=== PATIENT | male | born 1980 | race Hispanic/Latino ===

== ENCOUNTER 2025-05-25 11:49 | Emergency (ER) | payer SELFPAY ==
[2025-05-25 12:04] VITALS: BP 148/98; PULSE 80; RESP 18; TEMP 36.6; O2SAT 98
[2025-05-25 12:27] LABS: Hematocrit 50.5 % (42.0-52.0); Hemoglobin 17.0 g/dL (14.0-18.0); Immature Granulocyte Percent A 0.3 % (0-0.5); Lymphocytes Absolute Auto 2.25 K/mm3 (0.9-3.2); Mean Corpuscular HGB Conc 33.7 g/dl (32-36); Mean Corpuscular Hemoglobin 30.4 pg (26-34); Mean Corpuscular Volume 90.2 fl (80-100); Nucleated Red Blood Cells Absolute Auto 0.000 K/mm3 (0.0-0.012); Nucleated Red Blood Cells Perc 0.0 % (0.0-0.2); Platelet Count Result 265 k/mm3 (150-375); Red Blood Count 5.60 M/mm3 (4.6-6.20); White Blood Count 7.3 K/mm3 (4.5-10.0)
[2025-05-25 12:34] LABS: Add Urine Microscopic? YES; Appearance Urine Clear (Clear); Glucose Urine UA Negative (Negative); Leukocyte Esterase Ur Negative LEU/UL (Negative); Nitrate Urine Negative (Negative); Non Pathogenic Casts 0-2; Specific Grav Ur 1.031 (1.001-1.035)
--- NOTE | 2025-05-25 12:37 | ED.GENADULT ---
HPI - General Adult General Chief complaint: Nausea/Vomiting/Diarrhea Stated complaint: n/v Time Seen by Provider: 05/25/25 12:02 History of Present Illness HPI narrative: This is a 44-year-old Macanese-speaking male presenting for 2 complaints. Patient says that several years ago he was told that he may have hypertension and high cholesterol. He has not seen a primary care physician and he is not on medication. He wants know if he has hypertension high cholesterol. The 2nd complaint which frankly the patient does not seem very concerned about is nausea. Patient states for the last 3 weeks he has had intermittent nausea without vomiting. No other symptoms including fevers, abdominal pain diarrhea urinary symptoms. And does say that he occasionally has sharp chest pain in the center of his chest that is very mild and last for 1-2 seconds at a time. No difficulty breathing. Related Data Allergies Allergy/AdvReac Type Severity Reaction Status Date / Time No Known Allergies Allergy Verified 05/25/25 12:11 Exam Narrative: APPEARANCE: No apparent distress. Head: atraumatic. EYES: EOMI, NOSE: Atraumatic NECK: Trachea midline RESPIRATORY: No increased rate of breathing clear to auscultation CARDIOVASCULAR: RRR, no peripheral edema ABDOMINAL: Non-distended soft nontender no guarding rebound MUSCULOSKELETAl: No obvious deformities NEURO: Alert. Moving 4/4 extremities SKIN:: Warm, dry. Normal color PSYCHIATRIC: Normal affect Course Vital Signs Vital signs: Vital Signs Temperature 97.8 F 05/25/25 12:04 Pulse Rate 80 05/25/25 12:04 Respiratory Rate 18 05/25/25 12:04 Blood Pressure 148/98 H 05/25/25 12:04 Pulse Oximetry 98 05/25/25 12:04 Oxygen Delivery Room Air 05/25/25 12:04 Temperature 97.8 F 05/25/25 12:04 Pulse Rate 80 05/25/25 12:04 Respiratory Rate 18 05/25/25 12:04 Blood Pressure 148/98 H 05/25/25 12:04 Pulse Oximetry 98 05/25/25 12:04 Oxygen Delivery Room Air 05/25/25 12:04 Medical Decision Making [facility] Narrative Medical decision making narrative: -Course: 44-year-old male presenting with 2 complaints. He is concerned that he may have hypertension or high cholesterol. He will be referred to a primary care physician who can address those complaints. His 2nd complaint is nausea. Symptoms are mild he has not vomited. He will be provided a prescription for Zofran. -DDX includes but is not limited to: Hypertension, gastritis, GERD, viral syndrome Independent interpretation of studies: Screening lab work ordered per nursing protocol. Vital Signs Vital Signs: Vital Signs Temperature 97.8 F 05/25/25 12:04 Pulse Rate 80 05/25/25 12:04 Respiratory Rate 18 05/25/25 12:04 Blood Pressure 148/98 H 05/25/25 12:04 Pulse Oximetry 98 05/25/25 12:04 Oxygen Delivery Room Air 05/25/25 12:04 Temperature 97.8 F 05/25/25 12:04 Pulse Rate 80 05/25/25 12:04 Respiratory Rate 18 05/25/25 12:04 Blood Pressure 148/98 H 05/25/25 12:04 Pulse Oximetry 98 05/25/25 12:04 Oxygen Delivery Room Air 05/25/25 12:04 Lab Data 05/25/25 12:17 05/25/25 12:17 Labs: Lab Results 05/25/25 Range/Units 12:17 WBC 7.3 (4.5-10.0) K/mm3 RBC 5.60 (4.6-6.20) M/mm3 Hgb 17.0 (14.0-18.0) g/dL Hct 50.5 (42.0-52.0) % MCV 90.2 (80-100) fl MCH 30.4 (26-34) pg MCHC 33.7 (32-36) g/dl RDW 12.7 (11.5-14.5) % Plt Count 265 (150-375) k/mm3 MPV 10.3 (7.4-10.4) fl Immature Gran % (Auto) 0.3 (0-0.5) % Neut % (Auto) 60.7 (45.5-73.1) % Lymph % (Auto) 31.0 (18.3-44.2) % [place] % (Auto) 7.3 (2.6-8.5) % Eos % (Auto) 0.1 (0-4.4) % Baso % (Auto) 0.6 (0.2-1.2) % Lymph # (Auto) 2.25 (0.9-3.2) K/mm3 [place] # (Auto) 0.5 (0.1-0.6) K/mm3 Eos # (Auto) 0.0 (0-0.3) K/mm3 Baso # (Auto) 0.0 (0.0-0.1) K/mm3 Abs Immat Gran (auto) 0.02 (0.00-0.031) K/mm3 Absolute Neuts (auto) 4.4 (1.3-6.7) K/mm3 Absolute Nucleated RBC 0.000 (0.0-0.012) K/mm3 Nucleated RBC % 0.0 (0.0-0.2) % Sodium Pending Potassium Pending Chloride Pending Carbon Dioxide Pending Anion Gap Pending BUN Pending Creatinine Pending Estim Creat Clear Calc Pending Estimated GFR Pending Glucose Pending Calcium Pending Total Bilirubin Pending AST Pending ALT Pending Alkaline Phosphatase Pending Total Protein Pending Albumin Pending Lipase Pending Urine Color Pending Urine Appearance Pending Urine pH Pending Ur Specific [place] Pending Urine Protein Pending Urine Glucose (UA) Pending Urine Ketones Pending Ur Blood (Man) Pending Urine Nitrate Pending Urine Bilirubin Pending Urine Urobilinogen Pending Leukocyte Esterase Rfl Pending Discharge Plan Discharge Clinical Impression: Nausea Patient Disposition: Home Condition: Stable Instructions: Antibiotic Form, Acute Nausea and Vomiting (ED) Additional Instructions: You were seen emergency nausea. Please use Zofran as needed. Please follow-up with the primary care physician below for further evaluation of high blood pressure and high cholesterol Le atendieron por n?useas de emergencia. Use Zofran seg?n sea necesario. Consulte con solis m?dico de cabecera para mono evaluaci?n adicional de la presi?n arterial neil y el colesterol alto. Patient Language: Macanese Prescriptions: New ondansetron 4 mg tablet,disintegrating 4 mg PO Q8H PRN (Reason: nausea and vomiting) Qty: 30 0RF Follow-up/Referrals: Candy,RICHARD Larios [Non-Staff] - 1 Week (Establish pcp. concerned about HTN, HL) PHYSICIAN,[employer] [Primary Care Provider] -
[2025-05-25 13:01] LABS: Alanine Aminotransferase 31 U/L (6-50); Albumin Level 5.0 g/dL (3.5-5.1); Alkaline Phosphatase 59 U/L (38-126); Anion Gap 11 mmol/L (4-12); Aspartate Amino Transferase 29 U/L (17-59); Bilirubin,Total 0.9 mg/dL (0.2-1.3); Blood Urea Nitrogen 19 mg/dL (9-20); Calcium 9.8 mg/dL (8.4-10.2); Carbon Dioxide 27 mmol/L (22-30); Chloride 102 mmol/L (98-107); Estimated CRCL calculation 81 ml/min; Estimated Glomerular Filt Rate > 60; Glucose 100 mg/dL (65-110); Lipase 88 U/L (23-300); Potassium 4.0 mmol/L (3.4-5.0); Sodium 140 mmol/L (137-145); Total Protein 8.6 g/dL (6.3-8.2)
[2025-05-25 13:42] VITALS: BP 144/97; PULSE 78; RESP 14; O2SAT 99
== END 2025-05-25 14:02 | disposition home or self-care (01) ==
LOC: ANHED 13:48
PROVIDERS: Family Medicine; Emergency Provider Emergency Medicine
DX: R11.0 Nausea (principal)
CPT/HCPCS: 36415; 80053; 81001; 83690; 85025; 99283

== ENCOUNTER 2025-06-01 10:55 | Emergency (ER) | payer SELFPAY ==
[2025-06-01 11:05] VITALS: BP 124/87; PULSE 87; RESP 16; TEMP 36.7; O2SAT 98
--- NOTE | 2025-06-01 12:12 | ED.RECABL ---
HPI - Recheck/Abnormal Lab/Rx General Chief Complaint: Recheck/Abnormal Lab/Rx Stated Complaint: abdominal pain x 2 days Time Seen by Provider: 06/01/25 11:52 Source: patient Mode of arrival: ambulatory Limitations: language barrier (family member is interpreting which patient prefers) History of Present Illness HPI narrative: This is a 44-year-old male that presents to the emergency department for high cholesterol. Reports he does not currently have a PCP. He has no current symptoms/complaints otherwise. Related Data Allergies Allergy/AdvReac Type Severity Reaction Status Date / Time No Known Allergies Allergy Verified 05/25/25 12:11 Review of Systems Review of Systems: All systems reviewed & are unremarkable except as noted in HPI and below Exam Narrative: GENERAL: Well-appearing, well-nourished, and in no acute distress. HEAD: Normocephalic, atraumatic. EYES: EOMI. CHEST: No respiratory distress. HEART: Regular rate EXTREMITIES: Normal range of motion. No edema. SKIN: Warm, dry, no rash. NEURO: No focal deficits. Alert and oriented x3. PSYCH: Normal mood and affect Course Vital Signs Vital signs: Vital Signs Temperature 98.0 F 06/01/25 11:05 Pulse Rate 87 06/01/25 11:05 Respiratory Rate 16 06/01/25 11:05 Blood Pressure 124/87 06/01/25 11:05 Pulse Oximetry 98 06/01/25 11:05 Oxygen Delivery Room Air 06/01/25 11:05 Temperature 98.0 F 06/01/25 11:05 Pulse Rate 87 06/01/25 11:05 Respiratory Rate 16 06/01/25 11:05 Blood Pressure 124/87 06/01/25 11:05 Pulse Oximetry 98 06/01/25 11:05 Oxygen Delivery Room Air 06/01/25 11:05 MDM - Recheck/Abnormal Lab/Rx MDM Narrative Medical decision making narrative: Patient presents the emergency department as he was told his cholesterol is high in the past. He was instructed on the importance of seeing a primary care provider for further treatment of this. He has no symptoms currently. His vital signs are normal. Critical Care Time Critical Care Time Critical Care Time: No Discharge Plan Discharge Clinical Impression: Abnormal cholesterol test Patient Disposition: Home Condition: Stable Instructions: Hyperlipidemia (DC) Additional Instructions: You need to make an appointment with a primary care doctor to get your cholesterol levels treated. Call the primary listed below to set up an appointment Patient Language: Dutch Prescriptions: No Action ondansetron 4 mg tablet,disintegrating 4 mg PO Q8H PRN (Reason: nausea and vomiting) Qty: 30 0RF Follow-up/Referrals: PHYSICIAN,[employer] [Primary Care Provider] - Vik Hassan MD [Physician] -
== END 2025-06-01 12:24 | disposition home or self-care (01) ==
PROVIDERS: Emergency Provider Physician Assistant
DX: E78.00 Pure hypercholesterolemia, unspecified (principal)
CPT/HCPCS: 99281